=== PATIENT | male | born 1990 | race Caucasian/White ===

== ENCOUNTER 2020-07-17 17:03 | Emergency (ER) | payer MEDICAID ==
[~2020-07-17] VITALS: Ht 180.3 cm; Wt 61.2 kg
[2020-07-17 18:02] VITALS: BP 106/69
--- NOTE | 2020-07-17 19:10 | NUR ---
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
--- NOTE | 2020-07-17 19:19 | NUR ---
PT AMBULATES FROM LOBBY TO GURNEY WITH STEADY GAIT.
--- NOTE | 2020-07-17 20:09 | NUR ---
jmaar rn: pt asked and given food as he stated he hasnt ate while eating a granola bar.
--- NOTE | 2020-07-17 20:11 | NUR ---
Note lesly in EDM - 07/17/20 at 2012 by KEMAR PT D/C WITH D/C SUMMARY AND SCRIPTS. PT PROVIDED FOOD FROM [employer]. PT VERBALIZES UNDERSTANDING OF D/C INSTRUCTIONS AND DENIES ANY OTHER NEEDS PERTAINING TO THIS VISIT.
--- NOTE | 2020-07-17 20:12 | NUR ---
PT D/C WITH D/C SUMMARY AND SCRIPTS. PT PROVIDED FOOD FROM [employer]. PT VERBALIZES UNDERSTANDING OF D/C INSTRUCTIONS AND DENIES ANY OTHER NEEDS PERTAINING TO THIS VISIT.
== END 2020-07-17 20:15 | disposition home or self-care (01) ==
LOC: ED 17:30
DX: S22.31XA Fracture of one rib, right side, initial encounter for closed fracture (principal); S50.11XA Contusion of right forearm, initial encounter; F17.200 Nicotine dependence, unspecified, uncomplicated; W18.30XA Fall on same level, unspecified, initial encounter; Y93.89 Activity, other specified; Y92.410 Unspecified street and highway as the place of occurrence of the external cause; Y99.8 Other external cause status
CPT/HCPCS: 99284

== ENCOUNTER 2020-07-22 15:45 | Emergency (ER) | payer MEDICAID ==
[~2020-07-22] VITALS: Ht 180.3 cm; Wt 63.5 kg
[2020-07-22] MEDS ORDERED: KETOROLAC 30 MG/1 ML ONE (16:07)
[2020-07-22 16:10] VITALS: BP 122/94
[2020-07-22] MEDS ORDERED: KETOROLAC 30 MG/1 ML IM ONE (16:30)
--- NOTE | 2020-07-22 16:42 | NUR ---
DC EDUCATION PROVIDED, PT DEMONSTRATES UNDERSTANDING. PT AMBULATED STEADILY TO DC WITH RN
== END 2020-07-22 16:43 | disposition home or self-care (01) ==
LOC: ED 16:17
DX: R07.81 Pleurodynia (principal); Z76.0 Encounter for issue of repeat prescription; F17.210 Nicotine dependence, cigarettes, uncomplicated
CPT/HCPCS: 96372; 99283; J1885; 99406

== ENCOUNTER 2020-09-11 22:41 | Emergency (ER) | payer MEDICAID ==
[~2020-09-11] VITALS: Ht 180.3 cm; Wt 70.0 kg
--- NOTE | 2020-09-12 01:09 | NUR ---
BREAK RN: PT RESTING IN ROOM. REGULAR RESP. NO ACUTE DISTRESS NOTED. CALL LIGHT IN PLACE. WILL CONTINUE TO MONITOR WHILE PRIMARY RN IS ON BREAK.
--- NOTE | 2020-09-12 01:29 | NUR ---
BREAK RN: REPORT GIVEN TO JACOBO QUINTANA
[2020-09-12 01:48] VITALS: BP 114/68
== END 2020-09-12 02:00 | disposition home or self-care (01) ==
LOC: ED 23:42
DX: F19.10 Other psychoactive substance abuse, uncomplicated (principal); K40.90 Unilateral inguinal hernia, without obstruction or gangrene, not specified as recurrent
CPT/HCPCS: 99283